=== PATIENT | male | born 1985 | race Caucasian/White ===

== ENCOUNTER 2018-01-16 09:55 | Emergency (ER) | payer OTHER ==
[~2018-01-16] VITALS: Ht 172.7 cm; Wt 65.8 kg
[~2018-01-16 09:55] MED LIST: IBUPROFEN 600600 M1 PO; INVEGA6 MG PO; KLONOPIN0.5 MG; NORCO 5-325 TA1 EACH PO
[2018-01-16] MEDS ORDERED: WELLBUTRIN 75 M75 M1 PO (09:58)
[2018-01-16] MEDS ORDERED: TOPROL XL25 MG PO (09:59)
[2018-01-16] MEDS ORDERED: TRAMADOL 50 MG50 MG PO (11:03)
[2018-01-16 11:44] VITALS: BP 121/75
== END 2018-01-16 11:30 | disposition home or self-care (01) ==
LOC: ER 09:55
DX: S22.31XA Fracture of one rib, right side, initial encounter for closed fracture (principal); V89.2XXA Person injured in unspecified motor-vehicle accident, traffic, initial encounter; Y92.89 Other specified places as the place of occurrence of the external cause; Y93.89 Activity, other specified; Y99.8 Other external cause status

== ENCOUNTER 2018-04-10 15:29 | Emergency (ER) | payer OTHER ==
[~2018-04-10] VITALS: Ht 172.7 cm; Wt 66.2 kg
[~2018-04-10 15:29] MED LIST changes: +TOPROL XL25 MG PO; +TRAMADOL 50 MG50 MG PO; +WELLBUTRIN 75 M75 M1 PO
[2018-04-10] MEDS ORDERED: NAPROSYN500 MG PO (16:43)
[2018-04-10] MEDS ORDERED: ROBAXIN 750 MG750 M1 PO (16:43)
[2018-04-10 16:48] VITALS: BP 110/70
== END 2018-04-10 16:49 | disposition home or self-care (01) ==
LOC: ER 15:29
DX: M25.551 Pain in right hip (principal); V89.2XXA Person injured in unspecified motor-vehicle accident, traffic, initial encounter; Y92.89 Other specified places as the place of occurrence of the external cause; Y93.89 Activity, other specified; Y99.8 Other external cause status

== ENCOUNTER 2021-02-28 21:27 | Emergency (ER) | payer OTHER ==
[~2021-02-28] VITALS: Ht 172.7 cm; Wt 86.2 kg
--- NOTE | ~2021-02-28 | EMS ---
[place] [address] EMS Patient Care Report Name: RONALDO RITTER Room #: DEP CATHRYN Benson#: [id number] Admission: 02/28/21 Attend Phys: Discharge: 03/01/21 Date of : 87 Report #: [id number] THIS REPORT FOR: //name// Report Transmitted: 03/01/2021 10:26 EMS Care Summary [place], [place]/[facility] Incident [id number] @ 02/28/2021 19:41 Incident Location [address] [place] [address] Patient RONALDO RITTER JR Male, 35 Years 1985 Patient Address [address] [place] [address] Patient History Bipolar II Disorder,Schizoaffective Disorder, Patient Medications Benztropine, Chief Complaint HALLUCINATIONS Disposition Transported No Lights/[place] Dispatch Reason Sick Person Transported To [facility] Narrative MEDIC 30 RESPONDS TO A RESIDENCE ON A REPORTED PSYCH. UPON ARRIVAL EMS LEARNS THAT THERE IS A LANGUAGE BARRIER WITH FAMILY AND [employer] OFFICERS ADVISE THAT THEY HAVE YET TO FIND THE PATIENT HE IS REPORTEDLY HIDING SOMEWHERE IN THE HOUSE. TIME TO PATIENT CONTACT IS DELAYED EMS WAITS FOR PT TO BE LOCATED AND SCENE TO BE SECURED. ONCE PT IS LOCATED, EMS IS LEAD TO BASEMENT WHERE PT IS FOUND SITTING IN A CORNER PARTIALLY BEHIND A DRYER. [place] [address] EMS Patient Care Report Name: RONALDO RITTER Room #: DEP [facility].#: [id number] Admission: 02/28/21 Attend Phys: Discharge: 03/01/21 Date of : [birth year] Report #: [id number] ERRATIC THIS EVENING INCLUDING RUNNING IN THE STREET, HIDING IN THE HOUSE, AND DESCRIBING HEARING VOICES. PT APPEARS EMOTIONALLY UPSET DURING INITIAL ASSESSMENT AND AT TIMES TEARFUL. PT REPORTS HEARING "VOICES" THAT TELL PT TO "HURT OTHERS". PT REPORTS "I WANT TO IGNORE THEM". 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 PT TRANSPORTED WITH ONGOING ASSESSMENT. WHILE EN ROUTE, PT APPEARS TO LOOK AROUND THROUGH WINDOWS AND ANXIOUSLY ASK QUESTIONS REGARDING WHERE THE AMBULANCE IS HEADING, AND APPEARING POSSIBLY PARANOID. REPORT TO STAFF UPON ARRIVAL. TIME AT HOSPITAL IS EXTENDED DUE TO WAITING FOR A ROOM. Initial Vitals @20:39P: 87,R: 18,BP: 133/86,CO: 2,SpO2: 94, @20:35P: 111,R: 19,BP: 131/76,Pain: 0/10,GCS: 15,Glucose: 128,CO: 0,SpO2: 96,Revised Trauma: 12, Assessments @20:06MENTAL:Hallucinations,Person Oriented,Time Oriented,Event Oriented,Place Oriented,SKIN:HEENT:Head/Face: No Abnormalities,Neck/Airway: No Abnormalities,LUNG SOUNDS:ABDOMEN:PELVIS//GI:EXTREMITIES:Left Arm: No Abnormalities,Right Arm: No Abnormalities,Left Leg: No Abnormalities,Right Leg: No Abnormalities,PULSE:Radial: 2+ Normal,NEURO:No Abnormalities,@20:25MENTAL:Hallucinations,Place Oriented,Event Oriented,Time Oriented,Person Oriented,SKIN:HEENT:Head/Face: No Abnormalities,Neck/Airway: No Abnormalities,LUNG SOUNDS:ABDOMEN:PELVIS//GI:EXTREMITIES:Left Arm: No Abnormalities,Right Arm: No Abnormalities,Left Leg: No Abnormalities,Right Leg: No Abnormalities,PULSE:Radial: 2+ Normal,NEURO:No Abnormalities, Impression Behavioral/psychiatric episode Procedures @20:06 ALS Assessment Response: UnchangedSucceeded @20:28 Stretcher Response: Unchanged Timeline 19:39,Call Received 19:39,Dispatch Notified 19:41,Dispatched 19:42,En Route 19:56,On Scene 20:05,At Patient 20:06,ALS Assessment,Response: UnchangedSucceeded, 20:28,Stretcher,Response: Unchanged 20:35,BP: 131/76 M,PULSE: 111,RR: 19 R,SPO2: 96 Ox,ETCO2: ,B,PAIN: 0,GCS: 15, [address] [address] EMS Patient Care Report Name: RONALDO RITTER Room #: ERA Benson#: [id number] Admission: 02/28/21 Attend Phys: Discharge: 03/01/21 Date of : [birth year] Report #: [id number] 20:39,BP: 133/86 M,PULSE: 87,RR: 18 R,SPO2: 94 Ox,ETCO2: ,BG: ,PAIN: ,GCS: , 20:39,Depart Scene 20:47,At Destination 21:41,Call Closed Disclaimer v1.1 Copyright 2021 [employer] This EMS Care Summary contains data elements from the applicable legal record (which may be displayed differently). It is designed to provide pertinent information for the following purposes: continuity of care, clinical quality, and state data reporting. The complete legal record is available to ED staff and administrators of the receiving hospital in [employer]'s Patient Tracker. All data is provided "as is."
[~2021-02-28 21:27] MED LIST changes: +NAPROSYN500 MG PO; +ROBAXIN 750 MG750 M1 PO
[2021-02-28 23:28] LABS: RBC 5.26 mil/uL (4.50-6.00)
[2021-02-28 23:30] LABS: BASOPHILS 0.7 % (0.0-2.0); EOSINOPHILS 0.7 % (0.0-3.0); HEMATOCRIT 46.1 % (42.0-52.0); HEMOGLOBIN 15.4 gm/dL (14.0-18.0); LYMPHOCYTES 18.2 % (24.0-44.0); MCH 29.2 pg (26.0-34.0); MCHC 33.4 g/dL (28.0-37.0); MCV 87.6 fL (80.0-100.0); MONOCYTES 11.2 % (1.0-8.0); PLATELET COUNT 208 thou/uL (150-400); POLYS 69.2 % (36.0-66.0); RDW 13.5 % (10.5-14.5); WBC 8.6 thou/uL (4.0-11.0)
[2021-02-28 23:42] LABS: ANION GAP 10 mmol/L (7-16); BUN 15 mg/dL (7-18); CALCIUM 9.2 mg/dL (8.5-10.1); CHLORIDE 105 mmol/L (98-107); CO2 23 mmol/L (21-32); CREATININE 1.1 mg/dL (0.7-1.3); GLUCOSE 108 mg/dL (74-106); POTASSIUM 4.4 mmol/L (3.5-5.1); SODIUM 138 mmol/L (136-145)
[2021-02-28 23:46] LABS: AMP/METHAMP Negative (Negative); BARBITURATES Negative (Negative); BENZODIAZEPINES Negative (Negative); COCAINE Negative (Negative); METHADONE Negative (Negative); OPIATES Negative (Negative); PCP Negative (Negative)
[2021-02-28 23:48] LABS: ALBUMIN 3.7 g/dL (3.4-5.0); DIRECT BILIRUBIN 0.2 mg/dL (<0.1-0.2); SALICYLATE < 2.8 mg/dL (2.8-20.0); SGOT 16 U/L (15-37); SGPT 22 U/L (16-63); TOTAL BILIRUBIN 0.6 mg/dL (0.2-1.0); TOTAL PROTEIN 7.3 g/dL (6.4-8.2)
[2021-03-01 00:33] VITALS: BP 112/66
== END 2021-03-01 01:09 | disposition home or self-care (01) ==
LOC: ER 21:27
PROVIDERS: Student in an Organized Health Care Education/Training Program
DX: U07.1 COVID-19 (principal); F20.9 Schizophrenia, unspecified; Z79.891 Long term (current) use of opiate analgesic; Z79.899 Other long term (current) drug therapy